=== PATIENT | female | born 1945 | race Caucasian/White ===

== ENCOUNTER 2018-12-24 10:41 | Day surgery (SDC) | payer MEDICARE ==
[~2018-12-24] VITALS: Ht 149.9 cm; Wt 78.9 kg
[~2018-12-24 10:41] MED LIST: ALBU83IN INH; ALEN35TA37 PO; ASPI81TA26 PO; ATOR1TAB19 PO; BREO1INH3 INH; CALC1TAB63 PO; CLAR10CA3 PO; FISH1000 PO; FLAX10002 PO; HYDR1SOL PO; LATU20TA PO; LOSA100T8 PO; MULT-40 PO; MULT1TAB10 PO; MYRB25TA PO; PANT40TA3 PO; POTA1TAB14 PO; REST0.05 OU; SERT-141 PO; TIOT18INH INH; TRAV04OPD OU; VITA400T PO; XIID5DRO OU; ZETI10TA30 PO
[2018-12-24] MEDS ORDERED: GUAI400T9 PO (12:01)
[2018-12-24] MEDS ORDERED: ALBUTEROL SULFATE 2.5 MG/0.5 ML INH NEB SOLN As Ordered ONE (12:27)
[2018-12-24] MEDS ORDERED: LR 1,000 ML IV ONE (12:30)
[2018-12-24] MEDS ORDERED: ALBUTEROL SULFATE 2.5 MG/0.5 ML INH NEB SOLN INH ONE (12:30)
[2018-12-24] MEDS ORDERED: LIDOCAINE 2% INJ 100 MG/5 ML SDV (FOR ANES.) As Ordered ONE (12:55)
[2018-12-24] MEDS ORDERED: PROPOFOL 200 MG/20 ML VIAL As Ordered ONE (12:55)
[2018-12-24] MEDS ORDERED: ROCURONIUM BROMIDE 50 MG/5 ML VIAL As Ordered ONE (12:55)
[2018-12-24] MEDS ORDERED: ONDANSETRON 4MG/2ML VIAL (J2405) As Ordered ONE (12:57)
[2018-12-24] MEDS ORDERED: dexameTHASONE 4 MG/ML 1ML VIAL (J1100) As Ordered ONE (12:57)
[2018-12-24] MEDS ORDERED: MIDAZOLAM INJ 2 MG/2 ML VIAL (J2250) As Ordered ONE (13:00)
[2018-12-24] MEDS ORDERED: fentaNYL 250 MCG/5 ML INJECTION (J3010) As Ordered ONE (13:00)
[2018-12-24] MEDS: LIDOCAINE W/EPINEPHRINE 1% 20ML VIAL As Ordered ONE ×2 (14:00→14:30)
[2018-12-24] MEDS ORDERED: SUGAMMADEX SODIUM 500 MG/5 ML VIAL (BRIDION) As Ordered ONE (14:34)
[2018-12-24] MEDS ORDERED: fentaNYL 100 MCG/2 ML INJECTION (J3010) IV PRN (15:00)
[2018-12-24] MEDS ORDERED: NORCO, ANEXSIA 5/325MG TABLET (HYDROcodone/ACETAMINOPHEN) PO PRN (15:00)
[2018-12-24] MEDS ORDERED: LR 1,000 ML IV SCH (15:00)
[2018-12-24] MEDS ORDERED: ONDANSETRON 4MG/2ML VIAL (J2405) IV PRN (15:00)
[2018-12-24] MEDS ORDERED: LABETALOL HCL 100 MG/20 ML VIAL As Ordered ONE (15:18)
[2018-12-24] MEDS: hydrALAZINE INJ 20 MG/ML VIAL IV SCH ×4 (15:20→16:20)
[2018-12-24] MEDS ORDERED: LABETALOL HCL 100 MG/20 ML VIAL IV SCH (16:00)
[2018-12-24 17:35] VITALS: BP 133/63
--- NOTE | 2018-12-26 07:16 | RO ---
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 PROCEDURE: Wide local excision of mucosa of the floor of the mouth. 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 She was brought back to the operating room for another wide excision of the damaged mucosa. PROCEDURE: Satisfactory nasal tracheal intubation, intubated successfully without any difficulty. A side biting mouth gag was placed into the right side of the mouth. Then using [place] retractors, the tongue was retracted laterally to the right. The cheek was retracted to the left and gave good exposure of the floor of the mouth, although there was a short difference between the actual lateral border of the tongue and the alveolar ridge. Using needle cautery, an area was demarcated that included the granular appearing erythematous mucosa in the floor of the mouth. Approximately 5-8 mm of normal mucosa was visually allowed as this area was marked. The only area that would be short on wide margins would be close to the alveolar ridge where the excision was taken right up to the ridge itself. 0.5% Marcaine and Xylocaine was injected into the submucosa and then using needle cautery a paddle mucosa was excised down to the underlying muscularis. Using scissors, this paddle of mucosa was removed. The sublingual salivary gland was exposed inferiorly in the wound and was left undisturbed. Bleeding was easily controlled with needle cautery. Once this was done the incision was attempted to be closed using interrupted #3-0 chromic sutures mucosa from the border close to the lateral tongue to the mucosa along the alveolar ridge. As much closure could be achieved was done without too much tension. There was no significant bleeding. The throat was suctioned and the patient was awakened, extubated and sent to recovery in satisfactory condition.
== END 2018-12-24 17:45 | disposition home or self-care (01) ==
LOC: M SDC 10:41
PROVIDERS: ATTEND Specialist
DX: C04.1 Malignant neoplasm of lateral floor of mouth (principal); I10 Essential (primary) hypertension; I25.10 Atherosclerotic heart disease of native coronary artery without angina pectoris; K21.9 Gastro-esophageal reflux disease without esophagitis; H40.9 Unspecified glaucoma; K13.21 Leukoplakia of oral mucosa, including tongue; J45.20 Mild intermittent asthma, uncomplicated; E11.21 Type 2 diabetes mellitus with diabetic nephropathy; G47.33 Obstructive sleep apnea (adult) (pediatric); J30.9 Allergic rhinitis, unspecified; F32.3 Major depressive disorder, single episode, severe with psychotic features; F41.9 Anxiety disorder, unspecified; F32.9 Major depressive disorder, single episode, unspecified; E78.2 Mixed hyperlipidemia; R32 Unspecified urinary incontinence; J44.9 Chronic obstructive pulmonary disease, unspecified; Z88.0 Allergy status to penicillin; Z88.8 Allergy status to other drugs, medicaments and biological substances; Z79.899 Other long term (current) drug therapy; Z79.82 Long term (current) use of aspirin; Z95.5 Presence of coronary angioplasty implant and graft; Z90.710 Acquired absence of both cervix and uterus; Z96.1 Presence of intraocular lens
CPT/HCPCS: 40812; 88305; J1100; J2250; J2405; J3010

== ENCOUNTER → 2019-01-22 | Outpatient (CLI) | payer MEDICARE ==
[~2019-01-22] MED LIST changes: +GUAI400T9 PO; +ZETI10TA16 PO; -ZETI10TA30 PO
--- NOTE | 2019-01-23 09:11 | RADONC ---
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 STAGE: Stage I, T1N0M0 ECOG PERFORMANCE STATUS: 0 Ms. 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 She was seen by her dentist who was concerned about a small lesion in the left floor of mouth region. She was subsequently evaluated and on 12/24/2018, underwent a wide local excision of her floor of mouth lesion. Pathology revealed a small invasive moderately differentiated squamous cell carcinoma. The closest margin of resection was 1 mm from the cauterized lateral margin. No other lesions were seen and the patient has done well post surgery. She is now presenting to us for consideration of postoperative radiation. PAST MEDICAL HISTORY: The patients past medical history is positive for aortic valve disorder, allergic rhinitis, asthma, chronic ischemic our disease, coronary artery disease, diabetes, Hodgkin's disease, hyperlipidemia, hypertension, mitral valve disorder, obesity, overactive bladder, severe dry eye syndrome, tricuspid valve disorder, a vitamin D deficiency and varicella. In the past she has had an appendectomy, cataract surgery, cholecystectomy, colonoscopy, cardiac stent placement, hysterectomy, laser surgery for glaucoma in the right eye, and oophorectomy as well as angiograms. ALLERGIES: The patient is allergic to PENICILLIN and NORFLEX. FAMILY HISTORY: The patient's family history is positive for a mother with breast cancer. SOCIAL HISTORY: The patient had smoked for approximately 53 years. She drinks alcohol socially. REVIEW OF SYSTEMS: The patient's review of systems is largely noncontributory. She denies nausea, vomiting, fevers, chills, night sweats, diplopia, headaches, anxiety or depression, anorexia, weight loss, visual disturbances, chest pain, urinary or bowel difficulties, bone pain, or neurological problems. PHYSICAL EXAMINATION: The patient is a well-developed, well-nourished white female in no acute distress. HEENT: Exam is normocephalic, atraumatic. Extraocular movements are intact. Examination of the patient's oral cavity reveals a well-healed surgical scar present consistent with her above history. There is no evidence of nodularity ulceration or recurrent disease. There is no palpable preauricular, cervical, supraclavicular, infraclavicular or axillary lymphadenopathy. Lungs: Clear to auscultation and percussion. Heart has a regular rate and rhythm. Her abdomen is benign with no splenomegaly, masses or tenderness. ASSESSMENT: Ms. Win is presenting to us today with what appears to be stage I, T1, N0, M0, floor of mouth/alveolar ridge moderately differentiated squamous cell carcinoma which was excised with what appears to be a negative margin. I have spoken with our pathologist, Dr. Clement to reviewed the patient's margin and she confirms that this was a good margin. I have also contacted our head and neck surgeon Dr. Alamo in the absence of Dr. Rolon to discuss this case. Clearly, we agree that radiation would be quite toxic and probably not needed. I believe it should be reserved in case of recurrence for salvage. Surgery would be quite toxic as well. Dr. Alamo had already spoken with Dr. Rolon about this case. I agree with both of them that close observation would be of benefit to this very pleasant woman. I would recommend being seen every 3 months for evaluation. At first sign, if anything is going wrong, biopsy can be undertaken and further recommendations can be made. At the present time the NCCN guidelines for a stage I malignancy which has been totally excised with no negative features would be close followup. In addition, I have placed this patient on our list for discussion at our multidisciplinary tumor conference tomorrow. Should any issues come up, I will be contacting this patient and making further recommendations. cc: MD Serina PickettFrancia, DO JOSE DANIELD
== END ==
LOC: M ONCR 12:46
PROVIDERS: ATTEND Radiology Radiation Oncology
DX: C06.9 Malignant neoplasm of mouth, unspecified (principal)

== ENCOUNTER → 2020-12-15 | Outpatient (REF) | payer MEDICARE ==
[~2020-12-15] MED LIST changes: -ALEN35TA37 PO; +ALEN35TA54 PO; +PANT40TA29 PO; -PANT40TA3 PO
[2020-12-15 17:55] LABS: APPEARANCE, URINE CLEAR (CLEAR); BACTERIA, URINE AUTO NEGATIVE (NEGATIVE); BILIRUBIN, URINE AUTO NEGATIVE (NEGATIVE); BLOOD, URINE BLOOD NEGATIVE (NEGATIVE); COLOR, URINE YELLOW (YELLOW); GLUCOSE, URINE (UA) AUTO NEGATIVE (NEGATIVE); KETONE, URINE AUTO NEGATIVE (NEGATIVE); LEUKOCYTE ESTERASE, URINE AUTO 1+ (NEGATIVE); NITRITE, URINE AUTO NEGATIVE (NEGATIVE); PROTEIN, URINE AUTO NEGATIVE (NEGATIVE); RBC, URINE AUTO 0 /HPF (0-3); SPECIFIC GRAVITY URINE AUTO 1.012 (1.002-1.035); SQUAMOUS EPITHELIAL CELL UR AU 0 /HPF (0-6); UROBILINOGEN, URINE AUTO 0.2 mg/dL (0.0-2.0); WBC, URINE AUTO 10 /HPF (0-3)
== END ==
LOC: M SMT 17:19
PROVIDERS: ATTEND Nurse Practitioner Women's Health
DX: R32 Unspecified urinary incontinence (principal)
CPT/HCPCS: 51798; 81001; 87086; G0463

== ENCOUNTER → 2024-01-10 | Outpatient (REF) | payer MEDICARE ==
[~2024-01-10] MED LIST changes: +ALBU2.5V10 INH; -ALBU83IN INH; -ALEN35TA54 PO; +ALEN35TA56 PO; +EZET10TA58 PO; +POTA-298 PO; -POTA1TAB14 PO; -ZETI10TA16 PO
== END ==
LOC: M LAB REF 09:20
PROVIDERS: ATTEND Otolaryngology
DX: C04.9 Malignant neoplasm of floor of mouth, unspecified (principal)

== ENCOUNTER → 2024-01-30 | Outpatient (REF) | payer MEDICARE | LOC: M SFHCDERM 17:30 | PROVIDERS: ATTEND Nurse Practitioner Family | DX: L57.8 Other skin changes due to chronic exposure to nonionizing radiation (principal) ==

== ENCOUNTER → 2024-02-14 | Outpatient (CLI) | payer MEDICARE | LOC: M ONCR 10:59 | PROVIDERS: ATTEND General Practice | DX: C04.1 Malignant neoplasm of lateral floor of mouth (principal); Z87.891 Personal history of nicotine dependence; Z98.890 Other specified postprocedural states; Z79.85 Long-term (current) use of injectable non-insulin antidiabetic drugs; Z90.49 Acquired absence of other specified parts of digestive tract; Z90.710 Acquired absence of both cervix and uterus; Z80.3 Family history of malignant neoplasm of breast; Z88.0 Allergy status to penicillin; Z88.1 Allergy status to other antibiotic agents; Z88.8 Allergy status to other drugs, medicaments and biological substances; Z79.51 Long term (current) use of inhaled steroids; Z79.82 Long term (current) use of aspirin; Z79.899 Other long term (current) drug therapy ==

== ENCOUNTER → 2024-03-04 | Outpatient (CLI) | payer MEDICARE | LOC: M PLARAD 11:37 | PROVIDERS: ATTEND General Practice | DX: C04.1 Malignant neoplasm of lateral floor of mouth (principal) | CPT/HCPCS: 78815; A9552 ==

== ENCOUNTER → 2024-03-06 | Outpatient (CLI) | payer MEDICARE | LOC: M ONCR 10:43 | PROVIDERS: ATTEND General Practice | DX: C04.1 Malignant neoplasm of lateral floor of mouth (principal); Z87.891 Personal history of nicotine dependence; Z98.890 Other specified postprocedural states; Z88.0 Allergy status to penicillin; Z88.1 Allergy status to other antibiotic agents; Z88.8 Allergy status to other drugs, medicaments and biological substances; Z79.51 Long term (current) use of inhaled steroids; Z79.899 Other long term (current) drug therapy ==

== ENCOUNTER → 2025-03-11 | Outpatient (REF) | payer MEDICARE ==
[~2025-03-11] MED LIST changes: +LIFI1DRO4 OU; -XIID5DRO OU
[2025-03-11 16:11] LABS: APPEARANCE, URINE CLEAR (CLEAR); BACTERIA, URINE AUTO 2+ (NEGATIVE); BILIRUBIN, URINE AUTO NEGATIVE (NEGATIVE); BLOOD, URINE BLOOD NEGATIVE (NEGATIVE); GLUCOSE, URINE (UA) AUTO NEGATIVE (NEGATIVE); KETONE, URINE AUTO NEGATIVE (NEGATIVE); LEUKOCYTE ESTERASE, URINE AUTO NEGATIVE (NEGATIVE); NITRITE, URINE AUTO NEGATIVE (NEGATIVE); PROTEIN, URINE AUTO NEGATIVE (NEGATIVE); RBC, URINE AUTO 0 /HPF (0-3); SPECIFIC GRAVITY URINE AUTO 1.010 (1.002-1.035); SQUAMOUS EPITHELIAL CELL UR AU 1 /HPF (0-6); UROBILINOGEN, URINE AUTO 0.2 mg/dL (0.0-2.0); WBC, URINE AUTO 1 /HPF (0-3)
== END ==
LOC: M SMT 15:28
PROVIDERS: ATTEND Physician Assistant
DX: N39.0 Urinary tract infection, site not specified (principal)